=== PATIENT | male | born 1980 | race Caucasian/White ===

== ENCOUNTER 2017-01-10 17:28 | Observation (INO) | payer SELFPAY ==
[2017-01-10] VITALS (7 sets, daily range): BP systolic 108–139; BP diastolic 65–101; PULSE 64–119; RESP 12–20; TEMP 96.1–97.5; O2SAT 90–98
[~2017-01-10] VITALS: Ht 167.6 cm; Wt 60.1 kg
[~2017-01-10 17:28] MED LIST: AMLO5 PO; CEPH500C3 PO; KETO10 PO
--- NOTE | 2017-01-10 17:39 | PD ---
HPI Chief Complaint: OD/ Ingestion Time Seen by Provider: 17:32 Travel History International Travel<30 days: No Contact w/Intl Traveler<30days: No Traveled to known affect area: No History of Present Illness HPI 36yo M was brought in by [facility] for heroin overdose. Pt's 12 year old daughter found them using drugs and got scared so called. Pt was found on the carpet and responded to 0.8mg of narcan. Pt admits to sniffing heroin. Denies any other drugs. Denies any complaints. Pt is upset about his girlfriend. PFSH Past Medical History Arthritis: No Asthma: No Autoimmune Disease: No Anxiety: Yes Depression: Yes Heart Rhythm Problems: No Cancer: No Cardiovascular Problems: No High Cholesterol: No Chemotherapy: No Chest Pain: Yes Congestive Heart Failure: No COPD: No Cerebrovascular Accident: No Diabetes: No Diminished Hearing: No Endocrine: No Gastrointestinal Disorders: Yes (HEP C) GERD: Yes Genitourinary: No Hiatal Hernia: No Immune Disorder: No Kidney Stones: No Musculoskeletal: No Neurologic: No Psychiatric: Yes Reproductive: No Respiratory: No Migraines: No Radiation Therapy: No Renal Failure: No Seizures: No Sickle Cell Disease: No Sleep Apnea: No Thyroid Disease: No Ulcer: No Past Surgical History Abdominal Surgery: No AICD: No Arteriovenous Shunt: No Cardiac Surgery: No Ear Surgery: No Endocrine Surgery: No Eye Surgery: No Genitourinary Surgery: No Gynecologic Surgery: No Insulin Pump: No Joint Replacement: No Oral Surgery: Yes (Tonsils removed, tooth removed) Pacemaker: No Thoracic Surgery: No Tonsillectomy: Yes Other Surgery: Yes Social History Alcohol Use: Yes Tobacco Use: Yes Substance Use: Yes Allergies-Medications (Allergen,Severity, Reaction): Coded Allergies: *MDRO Multi-Drug Resistant Organism (Verified Allergy, Unknown, 05/02/16) MRSA Reported Meds & Prescriptions Reported Meds & Active Scripts Active Toradol (Ketorolac Tromethamine) 10 Mg Tab 10 Mg PO Q8 *DO NOT EXCEED 40 MG/DAY* *DURATION IS NOT TO EXCEED 5 DAYS* Norvasc (Amlodipine Besylate) 5 Mg Tab 5 Mg PO DAILY 30 Days Keflex (Cephalexin Monohydrate) 500 Mg Cap 500 Mg PO Q8 7 Days Review of Systems Except as stated in HPI: all other systems reviewed are Neg Physical Exam Narrative GENERAL: 36yo M in moderate distress. SKIN: Focused skin assessment warm/dry. HEAD: Atraumatic. Normocephalic. EYES: Pupils equal and round. No scleral icterus. No injection or drainage. ENT: No nasal bleeding or discharge. Mucous membranes pink and moist. NECK: Trachea midline. No JVD. CARDIOVASCULAR: Tachycardic. No murmur appreciated. RESPIRATORY: No accessory muscle use. Clear to auscultation. Breath sounds equal bilaterally. GASTROINTESTINAL: Abdomen soft, non-tender, nondistended. MUSCULOSKELETAL: No obvious deformities. No clubbing. No cyanosis. No edema. NEUROLOGICAL: Awake and alert. Moving all extremities. GCS 15. Data Data Last Documented VS Vital Signs Date Time Temp Pulse Resp B/P Pulse Ox O2 Delivery O2 Flow Rate FiO2 01/10/17 20:00 96.1 65 16 108/65 93 01/10/17 19:30 2 01/10/17 19:29 Room Air Orders Sodium Chlor 0.9% 1000 Ml Inj (Ns 1000 M (01/10/17 17:45) Electrocardiogram (01/10/17 ) Haloperidol Inj (Haldol Inj) (01/10/17 18:00) Chemistry Manager / Telemetry HARSH.Q8H (01/10/17 18:34) End Tidal Co2 (Etco2) (01/10/17 ) Complete Blood Count With Diff (01/10/17 19:54) Basic Metabolic Panel (Bmp) (01/10/17 19:54) Naloxone Inj (Narcan Inj) (01/10/17 20:00) Admit Order (Ed Use Only) (01/10/17 20:02) Labs Laboratory Tests Test 01/10/17 19:41 White Blood Count 13.8 TH/MM3 Red Blood Count 4.74 MIL/MM3 Hemoglobin 13.9 GM/DL Hematocrit 40.3 % Mean Corpuscular Volume 85.2 FL Mean Corpuscular Hemoglobin 29.3 PG Mean Corpuscular Hemoglobin 34.3 % Concent Red Cell Distribution Width 13.5 % Platelet Count 210 TH/MM3 Mean Platelet Volume 8.6 FL Neutrophils (%) (Auto) 80.4 % Lymphocytes (%) (Auto) 12.6 % Monocytes (%) (Auto) 6.4 % Eosinophils (%) (Auto) 0.3 % Basophils (%) (Auto) 0.3 % Neutrophils # (Auto) 11.1 TH/MM3 Lymphocytes # (Auto) 1.7 TH/MM3 Monocytes # (Auto) 0.9 TH/MM3 Eosinophils # (Auto) 0.0 TH/MM3 Basophils # (Auto) 0.0 TH/MM3 CBC Comment DIFF FINAL Differential Comment Sodium Level 143 MEQ/L Potassium Level 3.9 MEQ/L Chloride Level 107 MEQ/L Carbon Dioxide Level 25.2 MEQ/L Anion Gap 11 MEQ/L Blood Urea Nitrogen 13 MG/DL Creatinine 1.37 MG/DL Estimat Glomerular Filtration 59 ML/MIN Rate Random Glucose 137 MG/DL Calcium Level 8.2 MG/DL [facility] Medical Decision Making Medical Screen Exam Complete: Yes Emergency Medical Condition: Yes Interpretation(s) EKG: Sinus tachycardia at 118bpm. Normal axis. No ST segment elevation or depression. QTc 426ms. Differential Diagnosis Opiate overdose Narrative Course 36yo M who is very agitated when he arrived but GCS of 15 here after heroin overdose. Pt was given narcan 0.8mg by [facility]. Pt mildly tachycardic and given NS IVF. Pt was a threat to himself and others so haldol 5mg IV given. finish filer and continuous CO2 given. Pt reevaluated at bedside and RR is 8 to 9. Narcan 0.4mg IV ordered. Sign out to next team to continue to monitor, reevaluate and admit for observation. Diagnosis Primary Impression: Opiate overdose Qualified Code: T40.601A - Opiate overdose, accidental or unintentional, initial encounter Admitting Information Admitting Physician Requests: Observation Johana Gaytan DO January 10, 2017 17:39
[2017-01-10] MEDS ORDERED: SODIUM CHLOR 0.9% 1000 ML INJ 1,000 ML IV ONE (17:45)
[2017-01-10] MEDS ORDERED: HALOPERIDOL LACTATE 5 MG/ML AMP IV PUSH ONE (18:00)
[2017-01-10] MEDS ORDERED: NALOXONE HCL 0.4 MG/ML AMP IV PUSH ONE (20:00)
[2017-01-10 20:16] LABS: AUTOMATED NEUTROPHIL # 11.1 TH/MM3 (1.8-7.7); BASOPHIL % 0.3 % (0.0-2.0); EOSINOPHIL % 0.3 % (0.0-4.0); HEMATOCRIT 40.3 % (39.0-51.0); HEMO FLAGS DIFF FINAL; LYMPH % 12.6 % (9.0-44.0); LYMPHOCYTE # 1.7 TH/MM3 (1.0-4.8); MEAN CELL VOLUME 85.2 FL (80.0-100.0); MEAN CORPUSCULAR HEMOGLOBIN 29.3 PG (27.0-34.0); MEAN CORPUSCULAR HGB CONC 34.3 % (32.0-36.0); MONO % 6.4 % (0.0-8.0); NEUT % 80.4 % (16.0-70.0); PLATELET COUNT 210 TH/MM3 (150-450); RED BLOOD COUNT 4.74 MIL/MM3 (4.50-5.90); RED CELL DISTRIBUTION WIDTH 13.5 % (11.6-17.2); WHITE BLOOD COUNT 13.8 TH/MM3 (4.0-11.0)
--- NOTE | 2017-01-10 20:23 | HHI.HP ---
HPI Service Family Medicine Primary Care Physician No Primary Care Physician Admission Diagnosis heroine overdose Diagnoses: International Travel<30 Days: No Contact w/Intl Traveler<30days: No Known Affected Area: No History of Present Illness 36-year-old IV drug user brought in by [facility] after a heroin overdose. The patient's 12-year-old daughter found him and his girlfriend and called 911. He was found on the carpet and responded to 0.8 mg of Narcan. He admitted to the ED sniffing heroin, but denied other drugs. Apparently he became agitated in the emergency department and was given 5 mg IV Haldol. At the time of my interview at 2028, patient is resting comfortably. He awakens intermittently and states that he is fine, hungry, thirsty. He admits to snorting heroin. Denies IV drugs. Review of Systems ROS Limitations: Intoxication, Unresponsive Past Family Social History Past Medical History Anxiety Depression GERD Left forearm abscess 03/06/2014 Fifth metacarpal distal fracture 06/21/2015 IV drug use Past Surgical History Left forearm abscess I&D 03/06/2014 Reported Medications Reported Meds & Active Scripts Active Toradol (Ketorolac Tromethamine) 10 Mg Tab 10 Mg PO Q8 *DO NOT EXCEED 40 MG/DAY* *DURATION IS NOT TO EXCEED 5 DAYS* Norvasc (Amlodipine Besylate) 5 Mg Tab 5 Mg PO DAILY 30 Days Keflex (Cephalexin Monohydrate) 500 Mg Cap 500 Mg PO Q8 7 Days Allergies: Coded Allergies: *MDRO Multi-Drug Resistant Organism (Verified Allergy, Unknown, 05/02/16) MRSA Active Ordered Medications Active Medications Haloperidol Lactate (Haldol Inj) 5 mg ONCE ONCE IV PUSH Last administered on 18:00; Admin Dose 5 MG; Start 01/10/17 at 18:00; Stop 01/10/17 at 18:01 ; Status DC Naloxone HCl (Narcan Inj) 0.4 mg ONCE ONCE IV PUSH; Start 01/10/17 at 20:00; Stop 01/10/17 at 20:01; Status DC Sodium Chloride (NS 1000 ml Inj) 1,000 ml @ 999 mls/hr BOLUS ONCE IV Last administered on 01/10/17 17:45; Admin Dose 999 MLS/HR; Start 01/10/17 at 17:45 ; Stop 01/10/17 at 18:45; Status DC Family History Mother with hypertension Social History Tobacco: Smokes 1 pack per day for 16 years Alcohol: Socially. Did not clarify Illicit Drugs: IV drug abuse with cocaine and opiates Physical Exam Vital Signs Vital Signs Date Time Temp Pulse Resp B/P Pulse Ox O2 Delivery O2 Flow Rate FiO2 01/10/17 19:30 93 2 01/10/17 19:29 77 12 90 Room Air 01/10/17 18:52 84 16 115/66 98 Non-Rebreather 12 01/10/17 17:33 97.5 119 20 139/101 94 Physical Exam GENERAL: This is an unkempt male, in no acute distress, resting comfortably. Currently unarousable for questioning SKIN: No rashes, ecchymoses or lesions. Cool and dry. HEAD: Atraumatic. Normocephalic. No temporal or scalp tenderness. ENT: Nose without bleeding, purulent drainage or septal hematoma. NECK: Trachea midline. No JVD or lymphadenopathy. CARDIOVASCULAR: Regular rate and rhythm without murmurs, gallops, or rubs. RESPIRATORY: Clear to auscultation. Breath sounds equal bilaterally. No wheezes , rales, or rhonchi. GASTROINTESTINAL: Abdomen soft, non-tender, nondistended. No hepato-splenomegaly , or palpable masses. No guarding. MUSCULOSKELETAL: Extremities without clubbing, cyanosis, or edema. No joint tenderness, effusion, or edema noted. No calf tenderness. Negative Homans sign bilaterally. NEUROLOGICAL: Unarousable after IV Haldol. Laboratory Laboratory Tests Test 01/10/17 19:41 White Blood Count 13.8 Red Blood Count 4.74 Hemoglobin 13.9 Hematocrit 40.3 Mean Corpuscular Volume 85.2 Mean Corpuscular Hemoglobin 29.3 Mean Corpuscular Hemoglobin 34.3 Concent Red Cell Distribution Width 13.5 Platelet Count 210 Mean Platelet Volume 8.6 Neutrophils (%) (Auto) 80.4 Lymphocytes (%) (Auto) 12.6 Monocytes (%) (Auto) 6.4 Eosinophils (%) (Auto) 0.3 Basophils (%) (Auto) 0.3 Neutrophils # (Auto) 11.1 Lymphocytes # (Auto) 1.7 Monocytes # (Auto) 0.9 Eosinophils # (Auto) 0.0 Basophils # (Auto) 0.0 CBC Comment DIFF FINAL Differential Comment Result Diagram: 01/10/171940 Assessment and Plan Assessment and Plan 36-year-old male IV drug user here after drug overdose of heroin. Responded initially to naloxone, but then became aggressive and was subsequently given Haldol. Currently unarousable, but satting well on room air. Resting comfortably. Problem List: (1) Opiate overdose Status: Acute Plan: Status post Narcan treatment with response. Telemetry Narcan 0.4 mg IV every 2 minutes when necessary respiratory depression Counseled cessation (2) JS (acute kidney injury) Status: Acute Plan: Likely prerenal from dehydration Normal saline at maintenance rate 100 mL per hour (3) FEN/PPX Status: Acute Plan: Fluids: Normal saline at 100 mL per hour Electrolytes: Monitor and replace as needed Nutrition: Regular diet Prophylaxis: Heparin, SCD Physician Certification 2 Midnight Certification Type: Admission for Inpatient Services Order for Inpatient Services The services are ordered in accordance with Medicare regulations or non- Medicare payer requirements, as applicable. In the case of services not specified as inpatient-only, they are appropriately provided as inpatient services in accordance with the 2-midnight benchmark. Estimated LOS (days): 2 days is the estimated time the patient will need to remain in the hospital, assuming treatment plan goals are met and no additional complications. Post-Hospital Plan: Not yet determined Problem Qualifiers (1) Opiate overdose: Qualified Code: T40.601A - Opiate overdose, accidental or unintentional, initial encounter Ritesh Cotton MD R2 January 10, 2017 20:23
[2017-01-10 20:41] LABS: BICARBONATE 25.2 MEQ/L (21.0-32.0); POTASSIUM 3.9 MEQ/L (3.5-5.1)
[2017-01-10] MEDS ORDERED: NALOXONE HCL 0.4 MG/ML AMP IV PUSH PRN (20:45)
[2017-01-10] MEDS ORDERED: ONDANSETRON HCL 4 MG/2 ML VIAL IVP PRN (20:45)
[2017-01-10] MEDS ORDERED: NALOXONE HCL 0.4 MG/ML AMP IV PRN (20:45)
[2017-01-10] MEDS ORDERED: SODIUM CHLORIDE 0.9% FLUSH 10 ML FLUSH IV FLUSH PRN (20:45)
[2017-01-10] MEDS ORDERED: MAGNESIUM HYDROXIDE SUSP 30 ML CUP PO PRN (20:45)
[2017-01-10] MEDS: HEPARIN SODIUM - SQ 10,000 UNITS/ML VIAL SQ SCH (21:00)
[2017-01-10] MEDS: SODIUM CHLORIDE 0.9% FLUSH 10 ML FLUSH IV FLUSH SCH (21:00)
[2017-01-10] MEDS: SODIUM CHLOR 0.9% 1000 ML INJ 1,000 ML IV SCH (21:22)
[2017-01-11] VITALS: BP 116/69; PULSE 99; RESP 20; TEMP 97.4; O2SAT 70; O2SAT 90
[2017-01-11 04:00] VITALS: BP 105/58; PULSE 72; RESP 18; TEMP 97.6; O2SAT 94
[2017-01-11 08:05] LABS: AUTOMATED NEUTROPHIL # 7.7 TH/MM3 (1.8-7.7); BASOPHIL % 0.3 % (0.0-2.0); EOSINOPHIL # 0.2 TH/MM3 (0-0.4); EOSINOPHIL % 1.9 % (0.0-4.0); HEMATOCRIT 38.7 % (39.0-51.0); HEMO FLAGS DIFF FINAL; LYMPH % 19.2 % (9.0-44.0); LYMPHOCYTE # 2.1 TH/MM3 (1.0-4.8); MEAN CELL VOLUME 86.3 FL (80.0-100.0); MEAN CORPUSCULAR HEMOGLOBIN 28.5 PG (27.0-34.0); MEAN CORPUSCULAR HGB CONC 33.1 % (32.0-36.0); MONO % 8.6 % (0.0-8.0); PLATELET COUNT 167 TH/MM3 (150-450); RED BLOOD COUNT 4.48 MIL/MM3 (4.50-5.90); RED CELL DISTRIBUTION WIDTH 13.7 % (11.6-17.2); WHITE BLOOD COUNT 11.1 TH/MM3 (4.0-11.0)
[2017-01-11 08:09] VITALS: BP 117/75; PULSE 78; RESP 21; TEMP 96.5; O2SAT 97
[2017-01-11 08:23] LABS: ALT (GPT) 38 U/L (12-78); ANION GAP 7 MEQ/L (5-15); AST (GOT) 33 U/L (15-37); BICARBONATE 27.6 MEQ/L (21.0-32.0); BLOOD UREA NITROGEN 11 MG/DL (7-18); CHLORIDE 106 MEQ/L (98-107); GLOMERULAR FILTRATION RATE 87 ML/MIN (>89); POTASSIUM 3.7 MEQ/L (3.5-5.1); SODIUM (NA) 141 MEQ/L (136-145)
[2017-01-11 08:25] LABS: ALKALINE PHOSPHATASE 80 U/L (45-117)
[2017-01-11] MEDS: SODIUM CHLORIDE 0.9% FLUSH 10 ML FLUSH IV FLUSH SCH ×2 (09:00→10:07)
[2017-01-11] MEDS: HEPARIN SODIUM - SQ 10,000 UNITS/ML VIAL SQ SCH (10:07)
[2017-01-11] MEDS: SODIUM CHLOR 0.9% 1000 ML INJ 1,000 ML IV SCH (10:08)
[2017-01-11 11:06] VITALS: PULSE 71
--- NOTE | 2017-01-11 12:02 | HHI.FPPN ---
Subjective Remarks Jay Jay Foss is a 36yo gentleman with h/o IV drug use admitted under observation after heroin overdose. He had been using drugs with his girlfriend, and his girlfriend's 12yo daughter found them unresponsive. He was treated with narcan, but became agitated thereafter prompting treatment with Haldol. For further details, please see resident H&P. This morning, he reports he is feeling fine. He reports feeling a little groggy. He denies IV drug use this time and reports smoking heroin. He also would like his penis examined, as he has a recurrent lesion at the base of the shaft. ROS: + groggy. No nausea, no pain, no headache, no fevers, no chills, no SOB. All other symptoms reviewed are negative. PMH/PSxH/SocHx/FamHx: Per resident H&P. Significant for: Anxiety, depression, IV drug use, GERD, hepatitis C, h/o forearm abscess s/p I&D in 2013. Mother with HTN. + drug use, + 1PPD tobacco use; Social alcohol. 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 Objective Vitals Vital Signs Date Time Temp Pulse Resp B/P Pulse Ox O2 Delivery O2 Flow Rate FiO2 01/11/17 11:06 71 01/11/17 08:09 96.5 78 21 117/75 97 01/11/17 04:00 97.6 72 18 105/58 94 01/11/17 00:00 97.4 99 20 116/69 90 01/10/17 23:30 64 01/10/17 21:50 110/68 95 Nasal Cannula 2 01/10/17 20:00 96.1 65 16 108/65 93 01/10/17 19:30 93 2 01/10/17 19:29 77 12 90 Room Air 01/10/17 18:52 84 16 115/66 98 Non-Rebreather 12 01/10/17 17:33 97.5 119 20 139/101 94 I/O 01/10/17 01/10/17 01/10/17 01/11/17 01/11/17 01/11/17 07:00 15:00 23:00 07:00 15:00 23:00 Intake Total 480 ml Balance 480 ml Intake Oral 480 ml # Voids 1 Result Diagram: 01/11/17 0709 01/11/17 0709 Objective Remarks GENERAL: in NAD, no resp distress, nontoxic. HEENT: NCAT, EOMI, no scleral icterus, no conjunctival injection. MMM. NECK: Supple, no meningeal signs CV: RRR, S1 S2, No murmurs CHEST/PULM: CTAB, no crackles, no wheezes ABD/GI: +BS, soft, nontender, nondistneded EXT: 2+ DP pulses. no calf tenderness, no edema. : Healing lesion noted at shaft of penis. NEURO: Awake, alert. Normal muscle tone. Nonfocal. SKIN: No rashes, no jaundice. exam as above. PSYCH: Mood and affect are appropriate. Speech fluent. Does not appear to respond to internal stimuli. A/P Assessment and Plan 36-year-old male IV drug user here after drug overdose of heroin. Responded initially to naloxone, but then became aggressive and was subsequently given Haldol. Currently unarousable, but satting well on room air. Resting comfortably. Discharge Planning Discharge home today. Attending Attestation Patient seen, examined, and discussed with resident team. Problem List: (1) Opiate overdose Status: Resolved Plan: Counselled on drug avoidance. Resolved; he is awake. Discussed importance of not sharing needles or pipes given hepatitis C diagnosis. Counselled on condom use. (2) JS (acute kidney injury) Status: Resolved Plan: Likely prerenal from dehydration Normal saline at maintenance rate 100 mL per hour. Now eating ,drinking well. (3) Hepatitis C Status: Chronic Plan: Discussed this diagnosis with patient. Given current drug use, he is not a candidate for treatment. Discussed importance of not sharing needles or pipes. Problem Qualifiers (1) Opiate overdose: Qualified Code: T40.601D - Opiate overdose, accidental or unintentional, subsequent encounter Maryse Gaspar MD January 11, 2017 12:02
--- NOTE | 2017-01-11 12:10 | HHI.DCPOC ---
Discharge Care Plan Diagnosis: (1) Drug abuse (2) Depression (3) Cocaine abuse (4) Intravenous drug abuse Goals to Promote Your Health * To prevent worsening of your condition and complications * To maintain your health at the optimal level Directions to Meet Your Goals Take your medications as prescribed Follow your dietary instruction Follow activity as directed Keep your appointments as scheduled Take your immunizations and boosters as scheduled If your symptoms worsen call your PCP, if no PCP go to Urgent Care Center or Emergency Room Smoking is Dangerous to Your Health. Avoid second hand smoke Call the 24-hour hour crisis hotline for domestic abuse at Jenn Morna MD January 11, 2017 12:10
--- NOTE | 2017-01-11 12:13 | HHI.FPPN ---
Addendum to progress note ADDENDUM Reason for addendum: Additonal documentation Additional information Called DCF at [phone]. Spoke with Alanna. ID # [id number]. DCF accepted case. Alexis Rios MD R1 January 11, 2017 12:12
[2017-01-11 12:36] VITALS: BP 104/59; PULSE 72; RESP 20; TEMP 97.5; O2SAT 90
--- NOTE | 2017-01-11 16:47 | EKG ---
Date Performed: 01/10/2017 Time Performed: 17:43:24 PTAGE: 36 years EKG: SINUS TACHYCARDIA Baseline artifact Nonspecific ST-T wave changes Compared to previous trac ing, the patient is now tachycardic ABNORMAL RHYTHM ECG PREVIOUS TRACING : 05/02/2016 20.42 DOCTOR: Kat Dao Interpretating Date/Time 01/11/2017 16:43:58
== END 2017-01-11 14:36 | disposition home or self-care (01) ==
LOC: NEPE 17:28 → NEDA 20:04 → INTOOBSV 20:04 → N05A 22:19
PROVIDERS: ADMIT Family Medicine; ATTEND Family Medicine
DX: T40.1X1A Poisoning by heroin, accidental (unintentional), initial encounter (principal); F41.9 Anxiety disorder, unspecified; F32.9 Major depressive disorder, single episode, unspecified; R07.9 Chest pain, unspecified; B19.20 Unspecified viral hepatitis C without hepatic coma; K21.9 Gastro-esophageal reflux disease without esophagitis; R45.1 Restlessness and agitation; R00.0 Tachycardia, unspecified; F17.210 Nicotine dependence, cigarettes, uncomplicated; F19.10 Other psychoactive substance abuse, uncomplicated; F14.10 Cocaine abuse, uncomplicated; N17.9 Acute kidney failure, unspecified; E86.0 Dehydration
CPT/HCPCS: 80048; 80053; 85025; 93005; 96374; 99285; G0378; J1630; J1644; J2310; J7030

== ENCOUNTER 2017-03-16 23:16 | Emergency (ER) | payer SELFPAY ==
[~2017-03-16] VITALS: Ht 170.2 cm; Wt 70.0 kg
[2017-03-16 23:17] VITALS: BP 169/70; PULSE 72; RESP 16; TEMP 99; O2SAT 99
--- NOTE | 2017-03-17 00:15 | PD ---
HPI Chief Complaint: Bite or Sting Time Seen by Provider: 00:10 Travel History International Travel<30 days: No Contact w/Intl Traveler<30days: No Traveled to known affect area: No History of Present Illness HPI Patient complaining of right ear pain 3 weeks is achy like in nature and radiates throughout the right side of his head. Denies doing anything for this. Denies anything making it better or worse. Patient also has concerns over bump on his right hand, left forearm, and right calf that he thinks he may have been bit by something on the calf and to reports the other 2 are from injecting cocaine. Reports are tender to palpation. Denies anything making it better or worse.. Denies any fevers, nausea or vomiting, chest pain, shortness of breath, weight loss, or neck pain. PFSH Past Medical History Arthritis: No Asthma: No Autoimmune Disease: No Blood Disorders: Yes (HEP C) Anxiety: Yes Depression: Yes Heart Rhythm Problems: No Cancer: No Cardiovascular Problems: No High Cholesterol: No Chemotherapy: No Chest Pain: Yes Congestive Heart Failure: No COPD: No Cerebrovascular Accident: No Diabetes: No Diminished Hearing: No Endocrine: No Gastrointestinal Disorders: Yes (HEP C) GERD: Yes Genitourinary: No Hiatal Hernia: No Hypertension: Yes Immune Disorder: No Kidney Stones: No Musculoskeletal: No Neurologic: No Psychiatric: Yes Reproductive: No Respiratory: No Migraines: No Radiation Therapy: No Renal Failure: No Seizures: No Sickle Cell Disease: No Sleep Apnea: No Thyroid Disease: No Ulcer: No Influenza Vaccination: No Past Surgical History Abdominal Surgery: No AICD: No Arteriovenous Shunt: No Cardiac Surgery: No Ear Surgery: No Endocrine Surgery: No Eye Surgery: No Genitourinary Surgery: No Gynecologic Surgery: No Insulin Pump: No Joint Replacement: No Oral Surgery: Yes (Tonsils removed, tooth removed) Pacemaker: No Thoracic Surgery: No Tonsillectomy: Yes Other Surgery: Yes Social History Alcohol Use: Yes Tobacco Use: Yes Substance Use: Yes Allergies-Medications (Allergen,Severity, Reaction): Coded Allergies: *MDRO Multi-Drug Resistant Organism (Verified Allergy, Unknown, 03/16/17) MRSA Reported Meds & Prescriptions Reported Meds & Active Scripts Active Bactrim DS (Sulfamethoxazole-Trimethoprim) 800-160 Mg Tab 1 Tab PO BID Review of Systems Except as stated in HPI: all other systems reviewed are Neg Physical Exam Narrative GENERAL: Well-developed, well nourished, in no acute distress, and non-ill appearing. SKIN: Focused skin assessment warm and dry. Patient history small bumps on the dorsal right hand, left forearm, and lateral aspect of right calf that is nontender, afebrile, not indurated, and nonfluctuant. There is no crepitus. There is no drainage. HEAD: Atraumatic. Normocephalic. EYES: Pupils equal and round. EOMI. No scleral icterus. No injection or drainage. ENT: No nasal bleeding or discharge. Mucous membranes pink and moist. Right tympanic membrane is erythematous and bulging. Left tympanic membrane is pearly menendez. Was oversewn erythematous without exudate. Uvula midline. No tenderness to sinuses to palpation. NECK: Trachea midline. Supple. No nuclear rigidity. No cervical lymphadenopathy. CARDIOVASCULAR: Regular rate and rhythm. No murmur appreciated. RESPIRATORY: No accessory muscle use. No respiratory distress. Clear to auscultation. Breath sounds equal bilaterally. MUSCULOSKELETAL: No obvious deformities. No clubbing. No cyanosis. No edema. Full range of motion. NEUROLOGICAL: Awake and alert. No obvious cranial nerve deficits. Motor grossly within normal limits. Normal speech. PSYCHIATRIC: Appropriate mood and affect; insight and judgment normal. Data Data Last Documented VS Vital Signs Date Time Temp Pulse Resp B/P Pulse Ox O2 Delivery O2 Flow Rate FiO2 03/16/17 23:17 99.0 72 16 169/70 99 Room Air MDM Medical Decision Making Medical Screen Exam Complete: Yes Emergency Medical Condition: Yes Differential Diagnosis Otitis media, otitis externa, otalgia, abscess, cellulitis, other Narrative Course Patient looks great, non-ill appearing. The patient is tolerating fluids and is well hydrated. Appears simple otitis media. No clinical evidence by history or evaluation to suspect meningitis and/or sepsis, nor malignant OE or mastoiditis. I discussed with the patient, diagnosis, plan of care and to follow up with the patients primary physician within the next week. The patient was instructed to return if worsens in anyway, especially if increased pain, persistent fever, worsening headache neck pain or as needed. The patient agreed with plan. Patient in no obvious distress upon re-evaluation. There is no sign of infection, cellulitis, or abscess over the bumps patient's concerned about. There is no need to I&D at this time patient is going to be on antibiotics for his otitis media and should help prevent his other bumps from getting infected. Patient was asked if they wanted to speak to my attending, which the patient did not wish to do at this time. Any questions/concerns in reference to patient diagnosis/condition discussed and clarified prior to patient's discharge. Reinforced sheer importance of close follow up with patient's primary physician or primary care clinic. Instructed patient to return to ED immediately, if symptoms return/worsen. Pt showed understanding of above instructions. Further instructions and recommendations were detailed in discharge paperwork. Pt ambulated without difficulty out of ED at discharge. Diagnosis Primary Impression: Otitis media Qualified Code: H66.91 - Right otitis media, unspecified chronicity, unspecified otitis media type Patient Instructions: General Instructions, Otitis Media (ED) Additional Instructions: Follow-up with your primary care physician and/or ENT in 3-5 days for reevaluation. Take all medication as prescribed. Return to the emergency department if symptoms get worse. Med/Other Pt SpecificInfo: Prescription(s) given Scripts Sulfamethoxazole-Trimethoprim (Bactrim DS)800-160 Mg Tab1 Tab PO BID #20 TAB Ref 0 Prov:David Hernandez MD 03/17/17 Disposition: 01 DISCHARGE HOME Condition: Stable Dano Silva Mar 17, 2017 00:15
[2017-03-17] MEDS ORDERED: BACT800T5 PO (00:16)
== END 2017-03-17 00:25 | disposition home or self-care (01) ==
LOC: NEPD 23:16
DX: H66.91 Otitis media, unspecified, right ear (principal); B19.20 Unspecified viral hepatitis C without hepatic coma; F41.9 Anxiety disorder, unspecified; F32.9 Major depressive disorder, single episode, unspecified; K21.9 Gastro-esophageal reflux disease without esophagitis; I10 Essential (primary) hypertension; Z79.899 Other long term (current) drug therapy; Z72.0 Tobacco use
CPT/HCPCS: 99283

== ENCOUNTER 2017-04-27 17:33 | Emergency (ER) | payer SELFPAY ==
[~2017-04-27] VITALS: Ht 170.2 cm; Wt 75.0 kg
[~2017-04-27 17:33] MED LIST changes: -AMLO5 PO; +BACT800T5 PO; -CEPH500C3 PO; -KETO10 PO
[2017-04-27 17:35] VITALS: BP 147/80; PULSE 76; RESP 24; TEMP 98.8; O2SAT 99
[2017-04-27] MEDS ORDERED: BACT800T5 PO (17:55)
--- NOTE | 2017-04-27 17:55 | PD ---
HPI . right arm redness from injecting meth Chief Complaint: Skin Problem Time Seen by Provider: 17:40 Travel History International Travel<30 days: No Contact w/Intl Traveler<30days: No Traveled to known affect area: No History of Present Illness HPI 36-year-old male polysubstance abuser here with complaints of right arm redness from injecting meth 2 weeks ago. Patient says that he had some redness in his arm that has not subsided. He also has what he thinks is a piece of glass in his left foot. He denies any fever or chills. He has no other complaints. PFSH Past Medical History Arthritis: No Asthma: No Autoimmune Disease: No Blood Disorders: Yes (HEP C) Anxiety: Yes Depression: Yes Heart Rhythm Problems: No Cancer: No Cardiovascular Problems: No High Cholesterol: No Chemotherapy: No Chest Pain: Yes Congestive Heart Failure: No COPD: No Cerebrovascular Accident: No Diabetes: No Diminished Hearing: No Endocrine: No Gastrointestinal Disorders: Yes (HEP C) GERD: Yes Genitourinary: No Hiatal Hernia: No Hypertension: Yes Immune Disorder: No Kidney Stones: No Musculoskeletal: No Neurologic: No Psychiatric: Yes Reproductive: No Respiratory: No Migraines: No Radiation Therapy: No Renal Failure: No Seizures: No Sickle Cell Disease: No Sleep Apnea: No Thyroid Disease: No Ulcer: No Past Surgical History Abdominal Surgery: No AICD: No Arteriovenous Shunt: No Cardiac Surgery: No Ear Surgery: No Endocrine Surgery: No Eye Surgery: No Genitourinary Surgery: No Gynecologic Surgery: No Insulin Pump: No Joint Replacement: No Oral Surgery: Yes (Tonsils removed, tooth removed) Pacemaker: No Thoracic Surgery: No Tonsillectomy: Yes Other Surgery: Yes Social History Alcohol Use: Yes Tobacco Use: Yes Substance Use: Yes Allergies-Medications (Allergen,Severity, Reaction): Coded Allergies: *MDRO Multi-Drug Resistant Organism (Verified Allergy, Unknown, 04/27/17) MRSA Reported Meds & Prescriptions Reported Meds & Active Scripts Active No Active Prescriptions or Reported Medications Review of Systems General / Constitutional: No: Fever Eyes: No: Visual changes HENT: No: Headaches Cardiovascular: No: Chest Pain or Discomfort Respiratory: No: Shortness of Breath Gastrointestinal: No: Abdominal Pain Genitourinary: No: Dysuria Musculoskeletal: No: Pain Skin: Positive Other (splinter in left foot/redness to right arm), No Rash Neurologic: No: Weakness Psychiatric: No: Depression Endocrine: No: Polydipsia Hematologic/Lymphatic: No: Easy Bruising Physical Exam Narrative GENERAL: AAO x 3, no acute distress, Well-nourished, well-developed patient. SKIN: Warm and dry. Mild erythema to the right forearm without any abscess formation. Small wooden splinter in the left heel. HEAD: Normocephalic and atraumatic. EYES: No scleral icterus. No injection or drainage. ENT: No nasal drainage noted. Mucous membranes pink. Airway patent. NECK: Supple, trachea midline. No JVD. CARDIOVASCULAR: Regular rate and rhythm without murmurs, gallops, or rubs. RESPIRATORY: Breath sounds equal bilaterally. No accessory muscle use. No rhonchi or rales. GASTROINTESTINAL: Visual inspection normal EXTREMITIES: No cyanosis or edema. Full range of motion of all extremities BACK: Nontender without obvious deformity. No CVA tenderness. 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 Data Data Last Documented VS Vital Signs Date Time Temp Pulse Resp B/P (MAP) Pulse Ox O2 Delivery O2 Flow Rate FiO2 04/27/17 17:47 21 04/27/17 17:35 98.8 76 147/80 (102) 99 Room Air [facility] Medical Decision Making Medical Screen Exam Complete: Yes Emergency Medical Condition: Yes Medical Record Reviewed: Yes Differential Diagnosis Right arm cellulitis, left foot splinter, left foot cellulitis Narrative Course 36 yr old male here with complaints of right arm redness and left foot possible splinter. On examination patient does have some mild erythema to his right forearm from injecting IV drugs. He also has a small wooden splinter to his left heel, which splinter was removed without incident. I will prescribe him a course of Bactrim. I advised him if there is any abscess formation, return to the nearest emergency department. We discussed quitting drugs. He tells me he will refrain from using meth, but they will continue with his drugs of choice such as cocaine and occasional heroin. Patient verbalized understanding of instructions, questions were answered, and thanked me for their care. I advised them if their condition worsens, please return to the nearest emergency room for further care. Procedures Procedure Narrative left foot splinter removal small splinter to the left foot, superficial forceps used to remove. There was a small amount of pus that came out. area cleaned and patient tolerated without incident Diagnosis Primary Impression: Cellulitis Qualified Codes: L03.113 - Cellulitis of right upper limb Additional Impression: Splinter in skin Patient Instructions: General Instructions Additional Instructions: [place] for worsening signs of infection which include fever, increased redness , increased warmth, purulent drainage, increased swelling or streaking. If any of these develop, please go to the nearest emergency room. Please return to emergency department if your symptoms return or worsen. Follow up with your primary care provider. Take medications as prescribed. Med/Other Pt SpecificInfo: Prescription(s) given Scripts Sulfamethoxazole-Trimethoprim (Bactrim DS) 800-160 Mg Tab 1 TAB PO BID for Infection, #20 TAB 0 Refills Prov: Breonna Buitrago MD 04/27/17 Disposition: 01 DISCHARGE HOME Condition: Stable Rose Cedeno Apr 27, 2017 17:55
[2017-04-27 18:09] VITALS: BP 147/80; TEMP 98.8
== END 2017-04-27 18:10 | disposition home or self-care (01) ==
LOC: NEPD 17:33
DX: L03.113 Cellulitis of right upper limb (principal); S90.852A Superficial foreign body, left foot, initial encounter; W45.8XXA Other foreign body or object entering through skin, initial encounter
CPT/HCPCS: 28190

== ENCOUNTER 2018-01-09 10:58 | Emergency (ER) | payer SELFPAY ==
[~2018-01-09] VITALS: Ht 170.2 cm; Wt 65.0 kg
[2018-01-09 11:09] VITALS: BP 110/66; PULSE 76; RESP 18; TEMP 99.2; O2SAT 100
[2018-01-09 11:13] VITALS: BP 110/66; PULSE 76; RESP 16; TEMP 99.2; O2SAT 100
[2018-01-09] MEDS ORDERED: BACT800T5 PO (11:40)
[2018-01-09] MEDS ORDERED: IBUP1TAB7 PO (11:40)
[2018-01-09] MEDS ORDERED: CEPH-460 PO (11:40)
--- NOTE | 2018-01-09 11:40 | PD ---
HPI Chief Complaint: Skin Problem Time Seen by Provider: 11:18 Travel History International Travel<30 days: No Contact w/Intl Traveler<30days: No Traveled to known affect area: No History of Present Illness HPI 37-year-old male with long-standing history of IV drug use, drug of choice is heroin, presents emergency department for evaluation of an abscess of the right forearm and an injection site. Patient states he noticed it first 3 days ago. He has been applying warm compresses. He denies any fever or chills. States the areas painful, moderate. It does not radiate anywhere. He denies any limitations in range of motion. Patient states he last used his exam this morning. He is planning on going to detox today. He denies any chest pain or tightness. No difficulty breathing. He has no other symptoms to report. PFSH Past Medical History Arthritis: No Asthma: No Autoimmune Disease: No Blood Disorders: Yes (HEP C) Anxiety: Yes Depression: Yes Heart Rhythm Problems: No Cancer: No Cardiovascular Problems: No High Cholesterol: No Chemotherapy: No Chest Pain: Yes Congestive Heart Failure: No COPD: No Cerebrovascular Accident: No Diabetes: No Diminished Hearing: No Endocrine: No Gastrointestinal Disorders: Yes (HEP C) GERD: Yes Genitourinary: No Hiatal Hernia: No Hypertension: Yes Immune Disorder: No Kidney Stones: No Musculoskeletal: No Neurologic: No Psychiatric: Yes Reproductive: No Respiratory: No Immunizations Current: Yes Migraines: No Radiation Therapy: No Renal Failure: No Seizures: No Sickle Cell Disease: No Sleep Apnea: No Thyroid Disease: No Ulcer: No Past Surgical History Abdominal Surgery: No AICD: No Arteriovenous Shunt: No Cardiac Surgery: No Ear Surgery: No Endocrine Surgery: No Eye Surgery: No Genitourinary Surgery: No Gynecologic Surgery: No Insulin Pump: No Joint Replacement: No Oral Surgery: Yes (Tonsils removed, tooth removed) Pacemaker: No Thoracic Surgery: No Tonsillectomy: Yes Other Surgery: Yes Social History Alcohol Use: Yes Tobacco Use: Yes Substance Use: Yes (meth, cocaine, heroin) Allergies-Medications (Allergen,Severity, Reaction): Coded Allergies: *MDRO Multi-Drug Resistant Organism (Verified Allergy, Unknown, 04/27/17) MRSA Reported Meds & Prescriptions Reported Meds & Active Scripts Active Bactrim DS (Sulfamethoxazole-Trimethoprim) 800-160 Mg Tab 1 Tab PO BID Review of Systems Except as stated in HPI: all other systems reviewed are Neg Physical Exam Narrative GENERAL: Well-nourished male patient, no acute distress SKIN: There is an indurated area in the right forearm which measures about 3 cm in diameter. It is fluctuant but there is no pointing or drainage. There is a zone of inflammation around it but no lymphangitis. HEAD: Atraumatic. Normocephalic. EYES: Pupils equal and round. No scleral icterus. No injection or drainage. ENT: No nasal bleeding or discharge. Mucous membranes pink and moist. NECK: Trachea midline. No JVD. CARDIOVASCULAR: Regular rate and rhythm. No murmur appreciated. RESPIRATORY: No accessory muscle use. Clear to auscultation. Breath sounds equal bilaterally. GASTROINTESTINAL: Abdomen soft, non-tender, nondistended. Hepatic and splenic margins not palpable. MUSCULOSKELETAL: No obvious deformities. No clubbing. No cyanosis. 1+ edema surrounding the abscess area in the right forearm. The hand is not edematous. Distal pulses are palpable. NEUROLOGICAL: Awake and alert. No obvious cranial nerve deficits. Motor grossly within normal limits. Normal speech. Data Data Last Documented VS Vital Signs Date Time Temp Pulse Resp B/P (MAP) Pulse Ox O2 Delivery O2 Flow Rate FiO2 01/09/18 11:13 99.2 76 16 110/66 (81) 100 Orders Orders Wound Culture And Gram Stain (01/09/18 11:34) Sulfamet-Trimeth Ds 800-160 Mg (Bactrim (01/09/18 11:45) Cephalexin (Keflex) (01/09/18 11:45) Ibuprofen (Motrin) (01/09/18 11:45) Ed Discharge Order (01/09/18 11:35) [facility] Medical Decision Making Medical Screen Exam Complete: Yes Emergency Medical Condition: Yes Medical Record Reviewed: Yes Differential Diagnosis Abscess versus cellulitis versus erysipelas versus folliculitis Narrative Course 37-year-old male presents emergency department for evaluation of an abscess of the right forearm secondary to IV drug use. Patient otherwise appears well. He has no limitations in range of motion. His vital signs are stable. Abscess I&D is complete. Patient will be started on oral antibiotics. He is discharged and medically cleared to attend detox if that is what he so wishes. He agrees to return immediately with any acute worsening of symptoms. Procedures Procedure Narrative INCISION AND DRAINAGE OF ABSCESS: The area was prepped and was sterilely draped. Topical ethyl chloride was used to anesthetize the area. The area was properly anesthetized. A number 11 scalpel was used to make a 1-cm incision across the area of the abscess. Cultures were obtained. The abscess was drained an irrigated with normal saline. Sterile dressing was applied. Patient tolerated this well. Diagnosis Primary Impression: Abscess of forearm, right Additional Impression: Heroin use Referrals: Primary Care Physician Patient Instructions: Abscess Incision and Drainage (GEN), General Instructions Additional Instructions: Warm compresses to the affected area Do not squeeze the area It is recommended that he stop using IV drugs. Your medically cleared to go to detox Return immediately with acute worsening symptoms Med/Other Pt SpecificInfo: Prescription(s) given Scripts Ibuprofen (Ibuprofen) 800 Mg Tab 800 MG PO Q8H Y for Pain/Inflammation, #30 TAB 0 Refills Prov: Savannah Boss 01/09/18 Cephalexin (Keflex) 500 Mg Cap 500 MG PO Q6H for Infection for 5 Days, #20 CAP 0 Refills Prov: Savannah Boss 01/09/18 Sulfamethoxazole-Trimethoprim (Bactrim DS) 800-160 Mg Tab 1 TAB PO BID for Infection, #20 TAB 0 Refills Prov: Savannah Boss 01/09/18 Disposition: 01 DISCHARGE HOME Condition: Stable Savannah Boss January 09, 2018 11:40
[2018-01-09] MEDS ORDERED: CEPHALEXIN MONOHYDRATE 500 MG CAP PO ONE (11:45)
[2018-01-09] MEDS ORDERED: IBUPROFEN 800 MG TAB PO ONE (11:45)
[2018-01-09] MEDS ORDERED: SULFAMETHOXAZOLE-TRIMETHOPRIM DS 800-160 MG TAB PO ONE (11:45)
== END 2018-01-09 12:06 | disposition home or self-care (01) ==
LOC: NEPC 10:58
DX: L02.413 Cutaneous abscess of right upper limb (principal); B95.61 Methicillin susceptible Staphylococcus aureus infection as the cause of diseases classified elsewhere; F11.90 Opioid use, unspecified, uncomplicated; F14.90 Cocaine use, unspecified, uncomplicated; F17.210 Nicotine dependence, cigarettes, uncomplicated; B19.20 Unspecified viral hepatitis C without hepatic coma; I10 Essential (primary) hypertension
CPT/HCPCS: 10060; 86403; 87070; 87077; 87186; 87205